=== PATIENT | female | born 2000 | race Caucasian/White ===

== ENCOUNTER 2023-01-11 16:33 | Emergency (ER) | payer BC, SELFPAY ==
[2023-01-11 16:35] VITALS: BP 132/80; PULSE 104; RESP 18; TEMP 36.8; O2SAT 99; BMI 24.9
--- NOTE | 2023-01-11 16:38 | XR_ITS ---
The [address] [address] Patient Name: PIPPA QUINTANA MRN: [id number] date: 2000 Sex: F Assigned Patient Location: ED.MAIN Current Patient Location: ED.MAIN Accession/Order Number: [id number] Exam Date: 01/11/2023 16:51 Report Date: 01/11/2023 17:38 At the request of: DAVID PEPS Procedure: XR hand RT min 3V EXAM: XR hand RT min 3V HISTORY: injury COMPARISON: None. TECHNIQUE: 3 views of the right hand FINDINGS: A subtle linear lucency is seen about the radial base of the proximal phalanx of the second digit, best seen on the oblique view, which may represent a subtle subacute nondisplaced fracture. Joint alignment is normal. Joint spaces are preserved. Soft tissues appear unremarkable. XR/XR hand RT min 3V IMPRESSION: A subtle linear lucency is seen about the radial base of the proximal phalanx of the second digit, best seen on the oblique view, which may represent a subtle subacute nondisplaced fracture Electronically authenticated by: COLE NAYAK Date: 01/11/2023 17:38
--- NOTE | 2023-01-11 17:16 | ED.UPPEXIN1 ---
HPI - Extremity Injury (Upper) General Chief Complaint: Extremity Injury, Upper Stated Complaint: Upper extremity Pain Time Seen by Provider: 01/11/23 16:36 Source: patient Mode of arrival: walk-in History of Present Illness HPI narrative: patient is a 22-year-old female presents to the emergency department for an injury to the right index finger that occurred one month ago. She states she fell and her right index finger was hyperextended, she has continued to have pain over the palmar aspect of the right index finger, especially over the 2nd MCP joint. She reports pain with flexion of the right index finger. She has not had this injury evaluated. 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 She was using ibuprofen and ice with minimal improvement initially, but if she continues to use the right hand she continues to have pain over the palmar aspect of the finger. Related Data Previous Rx's Medication Instructions Recorded ketorolac 10 mg tablet 10 mg PO TID PRN pain #10 tabs 01/11/23 prednisone 20 mg tablet See Rx Instructions .Route 01/11/23 .COMPLEX #12 tabs Allergies Allergy/AdvReac Type Severity Reaction Status Date / Time No Known Drug Allergies Allergy Verified 01/11/23 16:35 Review of Systems ROS Constitutional Denies: fever or chills Respiratory Denies: shortness of breath or cough Gastrointestinal Denies: nausea or vomiting Musculoskeletal Denies: back pain Integumentary/Breast Denies: rash Hematologic/Lymphatic Denies: easy bruising Exam Narrative Exam Narrative: Gen.: Awake, alert, in no distress Head: Normocephalic, atraumatic ENT: Moist mucous membranes Respiratory: No respiratory distress Extremities: right 2nd digit with no swelling, obvious deformity. Limited flexion due to pain at the DIP and PIP joints. Tenderness over the palmar aspect of the right 2nd MCP. No evidence of complete flexor tendon deficit. Normal extension of the right 2nd finger Psych: Normal mood and affect Neuro: No focal neuro deficit Skin: Warm, dry, intact Constitutional Vital Signs, click to edit/add: Last Vital Signs Temp 98.2 F 01/11/23 16:35 Pulse 104 H 01/11/23 16:35 Resp 18 01/11/23 16:35 BP 132/80 01/11/23 16:35 Pulse Ox 99 01/11/23 16:35 Course Vital Signs Vital signs: Vital Signs Temperature 98.2 F 01/11/23 16:35 Pulse Rate 104 H 01/11/23 16:35 Respiratory Rate 18 01/11/23 16:35 Blood Pressure 132/80 01/11/23 16:35 Pulse Oximetry 99 01/11/23 16:35 Temperature 98.2 F 01/11/23 16:35 Pulse Rate 104 H 01/11/23 16:35 Respiratory Rate 18 01/11/23 16:35 Blood Pressure 132/80 01/11/23 16:35 Pulse Oximetry 99 01/11/23 16:35 MDM - Extremity Injury (Upper) MDM Narrative Medical decision making narrative: x-rays of the right hand with no evidence of fracture or dislocation. Patient counseled that she may have injured her flexor tendon in her fall, there is no evidence of complete rupture of the tendon at this time. She may have tendinitis from overuse of the hand after her injury. She'll be placed on NSAIDs and a short course of steroids, referred to orthopedics. She is placed in a splint and remains neurovascularly intact. Rest, ice, elevate. Medical Records Attestation: I reviewed the patient's medical records. Imaging Data x-ray hand right: Attestation: I personally reviewed and interpreted this imaging study as follows: My impression: NAD Discharge Plan Discharge Chief Complaint: Extremity Injury, Upper Clinical Impression: Injury of finger Patient Disposition: Home, Self-Care Time of Disposition Decision: 17:13 Condition: Good Prescriptions / Home Meds: New prednisone 20 mg tablet See Rx Instructions .ROUTE .COMPLEX Qty: 12 0RF Rx Instructions: 3 tabs daily for 2 days, then 2 tabs daily for 2 days, then 1 tab daily for 2 days ketorolac 10 mg tablet 10 mg PO TID PRN (Reason: pain) Qty: 10 0RF Instructions: Finger Sprain (ED), Tendinitis (ED) Stand Alone Forms: Portal Instructions Referrals: Stewart Rosario MD [Physician] - 1 week
== END 2023-01-11 17:22 | disposition home or self-care (01) ==
PROVIDERS: Emergency Provider Emergency Medicine Emergency Medical Services; PCP Nurse Practitioner
DX: S69.91XA Unspecified injury of right wrist, hand and finger(s), initial encounter (principal); W19.XXXA Unspecified fall, initial encounter
CPT/HCPCS: 29130; 73130; 99283